=== PATIENT | female | born 1975 | race Caucasian/White ===

== ENCOUNTER 2018-11-06 22:50 | Emergency (ER) | payer OTHER ==
[~2018-11-06] VITALS: Ht 152.4 cm; Wt 54.4 kg
[~2018-11-06 22:50] MED LIST: ANAPROX DS550 MG PO; AUGMENTIN 875 M1 TAB PO; FLEXERIL5 MG PO; MOTRIN800 MG PO; NKHM
[2018-11-06 23:03] VITALS: BP 129/87
[2018-11-06] MEDS ORDERED: ANAPROX DS550 MG PO (23:51)
[2018-11-06] MEDS ORDERED: ROBAXIN500 M1 PO (23:51)
== END 2018-11-07 00:54 | disposition home or self-care (01) ==
LOC: ED 22:50
DX: S16.1XXA Strain of muscle, fascia and tendon at neck level, initial encounter (principal); F17.200 Nicotine dependence, unspecified, uncomplicated; V49.9XXA Car occupant (driver) (passenger) injured in unspecified traffic accident, initial encounter; Y93.89 Activity, other specified; Y92.89 Other specified places as the place of occurrence of the external cause; Y99.8 Other external cause status

== ENCOUNTER 2019-01-28 14:03 | Emergency (ER) | payer OTHER ==
[~2019-01-28] VITALS: Ht 154.9 cm; Wt 58.1 kg
[~2019-01-28 14:03] MED LIST changes: +ROBAXIN500 M1 PO
[2019-01-28 14:55] LABS: BASO # 0.1 10*3/uL (0.0-0.1); BASO % 0.6 % (0.0-1.0); EOS # 0.2 10*3/uL (0.0-0.4); EOS % 1.8 % (1.0-4.0); LYMPH # 1.9 10*3/uL (1.3-4.4); MEAN CELL VOLUME 84.9 fl (81.0-99.0); MEAN CORPUSCULAR HGB 27.7 pg (27.0-31.0); MEAN CORPUSCULAR HGB CONC 32.7 g/dl (33.0-37.0); MEAN PLATELET VOLUME 9.9 fl (9.6-12.3); MONO # 0.7 10*3/uL (0.1-1.0); MONO % 6.3 % (3.0-9.0); NEUT # 7.7 10*3/uL (2.3-7.9); PLATELET COUNT AUTOMATED 319 10*3/uL (130-400); RED BLOOD COUNT 5.77 10*6/uL (4.10-5.10); RED CELL DISTRI WIDTH 13.2 % (0-14.5); WHITE BLOOD COUNT 10.6 10*3/uL (4.8-10.8)
[2019-01-28 15:05] LABS: ALBUMIN 3.7 gm/dl (3.1-4.5); ALKALINE PHOSPHATASE 47 U/L (45-117); BUN 15 mg/dl (7-24); CHLORIDE 111 mmol/L (98-107); CREATININE 0.75 mg/dL (0.55-1.02); POTASSIUM 4.4 mmol/L (3.5-5.1); SGOT/AST 10 IU/L (3-35); SGPT/ALT 20 U/L (12-78); SODIUM 140 mmol/L (136-145); TOTAL PROTEIN 7.7 gm/dL (6.4-8.2)
[2019-01-28 15:42] VITALS: BP 124/88
== END 2019-01-28 17:09 | disposition home or self-care (01) ==
LOC: ED 14:03
PROVIDERS: Nurse Practitioner Family
DX: G37.9 Demyelinating disease of central nervous system, unspecified (principal); Z79.899 Other long term (current) drug therapy; Z90.49 Acquired absence of other specified parts of digestive tract

== ENCOUNTER 2021-06-18 20:09 | Emergency (ER) | payer OTHER ==
[2021-06-18 21:21] VITALS: BP 140/74
[2021-06-18 21:42] LABS: BILIRUBIN Negative (Negative); BLOOD Negative (Negative); CLARITY Clear (Clear); COLOR Yellow (Yellow); GLUCOSE Negative (Negative); KETONE Negative (Negative); LEUKO ESTERASE Negative (Negative); NITRITE Negative (Negative); SPECIFIC GRAVITY 1.025 (1.001-1.030); UROBILINOGEN 0.2 E.U./dl (0.0-1.0)
[2021-06-18 21:51] LABS: BACTERIA TRACE; RBC 0-2 rbc/hpf (0-2)
[2021-06-18] MEDS ORDERED: IBUPROFEN600 MG PO (22:44)
== END 2021-06-18 22:46 | disposition home or self-care (01) ==
LOC: ED 20:09
PROVIDERS: Physician Assistant
DX: M79.675 Pain in left toe(s) (principal); Z20.2 Contact with and (suspected) exposure to infections with a predominantly sexual mode of transmission

== ENCOUNTER 2021-07-20 17:31 | Emergency (ER) | payer OTHER ==
[~2021-07-20] VITALS: Wt 49.9 kg
[~2021-07-20 17:31] MED LIST changes: +IBUPROFEN600 MG PO
[2021-07-20 17:37] VITALS: BP 122/83
== END 2021-07-20 20:34 | disposition left against medical advice (07) ==
LOC: ED 17:31
DX: R21 Rash and other nonspecific skin eruption (principal); Z53.21 Procedure and treatment not carried out due to patient leaving prior to being seen by health care provider

== ENCOUNTER 2021-07-20 21:28 | Emergency (ER) | payer OTHER | END 2021-07-20 21:43 | disposition left against medical advice (07) | LOC: ED 21:28 | DX: R21 Rash and other nonspecific skin eruption (principal); Z53.21 Procedure and treatment not carried out due to patient leaving prior to being seen by health care provider ==

== ENCOUNTER 2021-07-25 14:52 | Observation (INO) | payer OTHER ==
[~2021-07-25] VITALS: Ht 152.4 cm; Wt 49.5 kg
[2021-07-25 15:12] VITALS: BP 111/78
[2021-07-25 16:33] LABS: BASO % 0.4 % (0.0-1.0); EOS # 0.3 10*3/uL (0.0-0.4); EOS % 3.4 % (1.0-4.0); HEMATOCRIT 45.7 % (37.0-47.0); LYMPH # 1.6 10*3/uL (1.3-4.4); LYMPH % 17.2 % (27.0-41.0); MEAN CELL VOLUME 84.2 fl (81.0-99.0); MEAN CORPUSCULAR HGB 27.4 pg (27.0-31.0); MEAN CORPUSCULAR HGB CONC 32.6 g/dl (33.0-37.0); MEAN PLATELET VOLUME 9.7 fl (9.6-12.3); MONO # 0.7 10*3/uL (0.1-1.0); MONO % 6.9 % (3.0-9.0); NEUT # 6.8 10*3/uL (2.3-7.9); NEUT % 71.8 % (47.0-73.0); PLATELET COUNT AUTOMATED 336 10*3/uL (130-400); RED BLOOD COUNT 5.43 10*6/uL (4.10-5.10); RED CELL DISTRI WIDTH 13.5 % (0-14.5); WHITE BLOOD COUNT 9.4 10*3/uL (4.8-10.8)
[2021-07-25 16:48] LABS: ALKALINE PHOSPHATASE 54 U/L (45-117); BUN 14 mg/dl (7-24); CHLORIDE 111 mmol/L (98-107); CREATININE 0.68 mg/dL (0.55-1.02); POTASSIUM 3.8 mmol/L (3.5-5.1); SGOT/AST 12 IU/L (3-35); SGPT/ALT 14 U/L (12-78); SODIUM 141 mmol/L (136-145); TOTAL PROTEIN 7.1 gm/dL (6.4-8.2)
[2021-07-25 17:58] LABS: BILIRUBIN 1+ (Negative); BLOOD 3+ (Negative); CLARITY Turbid (Clear); GLUCOSE Negative (Negative); KETONE Negative (Negative); LEUKO ESTERASE 2+ (Negative); NITRITE Positive (Negative); SPECIFIC GRAVITY >= 1.030 (1.001-1.030); UROBILINOGEN 0.2 E.U./dl (0.0-1.0)
[2021-07-25 18:03] LABS: COLOR Red (Yellow)
[2021-07-25 18:06] LABS: BACTERIA 3+; RBC TNTC rbc/hpf (0-2)
[2021-07-26] VITALS: BP 140/99
[2021-07-26 06:05] LABS: BASO % 0.6 % (0.0-1.0); EOS # 0.4 10*3/uL (0.0-0.4); HEMATOCRIT 43.6 % (37.0-47.0); LYMPH # 1.9 10*3/uL (1.3-4.4); LYMPH % 27.2 % (27.0-41.0); MEAN CELL VOLUME 83.4 fl (81.0-99.0); MEAN CORPUSCULAR HGB 27.7 pg (27.0-31.0); MEAN CORPUSCULAR HGB CONC 33.3 g/dl (33.0-37.0); MEAN PLATELET VOLUME 9.7 fl (9.6-12.3); MONO # 0.6 10*3/uL (0.1-1.0); MONO % 8.5 % (3.0-9.0); NEUT % 57.6 % (47.0-73.0); PLATELET COUNT AUTOMATED 334 10*3/uL (130-400); RED BLOOD COUNT 5.23 10*6/uL (4.10-5.10); RED CELL DISTRI WIDTH 13.5 % (0-14.5)
[2021-07-26 06:24] LABS: CHLORIDE 110 mmol/L (98-107); POTASSIUM 3.2 mmol/L (3.5-5.1); SODIUM 142 mmol/L (136-145)
[2021-07-26 06:43] LABS: ALKALINE PHOSPHATASE 50 U/L (45-117); BUN 12 mg/dl (7-24); CHOLESTEROL 176 mg/dL (<200); LDL CHOLESTEROL 94 mg/dL (9-159); SGOT/AST 9 IU/L (3-35); SGPT/ALT 13 U/L (12-78); TOTAL PROTEIN 6.4 gm/dL (6.4-8.2); TRIGLYCERIDES 112 mg/dl (<150)
[2021-07-26 07:12] LABS: VITAMIN D, 25-HYDROXY 29.5 ng/mL (30-100)
[2021-07-26 08:00] VITALS: BP 110/76
[2021-07-26 12:00] VITALS: BP 120/82
[2021-07-26 14:26] LABS: CSF TOTAL PROTEIN 38.8 mg/dL (15-45)
[2021-07-26 16:00] VITALS: BP 114/68
[2021-07-26 20:00] VITALS: BP 122/69
[2021-07-27] VITALS: BP 125/75
[2021-07-27 06:28] LABS: BUN 14 mg/dl (7-24); CHLORIDE 113 mmol/L (98-107); CREATININE 0.64 mg/dL (0.55-1.02); POTASSIUM 4.1 mmol/L (3.5-5.1); SODIUM 143 mmol/L (136-145)
[2021-07-27 08:00] VITALS: BP 118/94
[2021-07-27 12:00] VITALS: BP 122/86
[2021-07-27] MEDS ORDERED: ZOFRAN4 MG PO (12:35)
[2021-07-27] MEDS ORDERED: ASPIRIN ADULT L81 M2 PO (12:35)
== END 2021-07-27 14:50 | disposition home or self-care (01) ==
LOC: ED 14:52 → 4E 21:22 → EDHOLD 21:22 → 4E 21:43
PROVIDERS: Hospitalist; Physician Assistant; Student in an Organized Health Care Education/Training Program; ADMIT Internal Medicine; ATTEND Internal Medicine
DX: R51.9 Headache, unspecified (principal); I63.9 Cerebral infarction, unspecified; I10 Essential (primary) hypertension; N30.00 Acute cystitis without hematuria; E87.8 Other disorders of electrolyte and fluid balance, not elsewhere classified; E83.41 Hypermagnesemia; J45.909 Unspecified asthma, uncomplicated; E07.9 Disorder of thyroid, unspecified; F32.9 Major depressive disorder, single episode, unspecified; N80.9 Endometriosis, unspecified; G35 Multiple sclerosis; Z79.899 Other long term (current) drug therapy

== ENCOUNTER 2021-07-29 12:57 | Emergency (ER) | payer OTHER ==
[~2021-07-29] VITALS: Wt 45.4 kg
[~2021-07-29 12:57] MED LIST changes: +ASPIRIN ADULT L81 M2 PO; +ZOFRAN4 MG PO
[2021-07-29 12:59] VITALS: BP 130/68
[2021-07-29 13:19] LABS: BASO # 0.1 10*3/uL (0.0-0.1); BASO % 0.5 % (0.0-1.0); EOS # 0.4 10*3/uL (0.0-0.4); EOS % 3.5 % (1.0-4.0); HEMATOCRIT 44.7 % (37.0-47.0); LYMPH # 1.5 10*3/uL (1.3-4.4); LYMPH % 14.8 % (27.0-41.0); MEAN CELL VOLUME 83.9 fl (81.0-99.0); MEAN CORPUSCULAR HGB 27.8 pg (27.0-31.0); MEAN CORPUSCULAR HGB CONC 33.1 g/dl (33.0-37.0); MEAN PLATELET VOLUME 9.8 fl (9.6-12.3); MONO # 0.6 10*3/uL (0.1-1.0); MONO % 5.4 % (3.0-9.0); NEUT # 7.7 10*3/uL (2.3-7.9); NEUT % 75.6 % (47.0-73.0); PLATELET COUNT AUTOMATED 314 10*3/uL (130-400); RED BLOOD COUNT 5.33 10*6/uL (4.10-5.10); RED CELL DISTRI WIDTH 13.6 % (0-14.5); WHITE BLOOD COUNT 10.2 10*3/uL (4.8-10.8)
[2021-07-29 13:40] LABS: BUN 17 mg/dl (7-24); CHLORIDE 111 mmol/L (98-107); CREATININE 0.76 mg/dL (0.55-1.02); POTASSIUM 3.9 mmol/L (3.5-5.1); SODIUM 142 mmol/L (136-145)
[2021-07-29 14:45] LABS: BILIRUBIN Negative (Negative); BLOOD 1+ (Negative); CLARITY Clear (Clear); COLOR Yellow (Yellow); GLUCOSE Negative (Negative); KETONE Negative (Negative); LEUKO ESTERASE Negative (Negative); NITRITE Negative (Negative); PH 6.5 (4.5-8.0)
[2021-07-29 14:53] LABS: URINE AMPHETAMINES < 1000 (1000ng/ml); URINE BARBITURATES < 200 (200ng/ml); URINE BENZODIAZEPINES < 200 (200ng/ml); URINE CANNABINOIDS (THC) < 50 (50ng/ml); URINE COCAINE < 300 (300ng/ml); URINE METHADONE < 300 (300ng/ml); URINE OPIATES < 300 (300ng/ml)
[2021-07-29 14:55] LABS: URINE PHENCYCLIDINE < 25 (25ng/ml)
[2021-07-29 14:58] LABS: BACTERIA 1+; EPITHELIAL CELLS TNTC; MUCOUS TRACE
== END 2021-07-29 19:32 | disposition home or self-care (01) ==
LOC: ED 12:57
PROVIDERS: Emergency Medicine
DX: G44.89 Other headache syndrome (principal); I10 Essential (primary) hypertension; J45.909 Unspecified asthma, uncomplicated; Z88.0 Allergy status to penicillin; Z90.49 Acquired absence of other specified parts of digestive tract; Z90.89 Acquired absence of other organs; Z98.890 Other specified postprocedural states

== ENCOUNTER 2021-11-04 17:47 | Emergency (ER) | payer OTHER ==
[~2021-11-04] VITALS: Ht 152.4 cm; Wt 51.7 kg
[2021-11-04 18:02] VITALS: BP 134/90
[2021-11-04 19:49] LABS: BILIRUBIN Negative (Negative); BLOOD Negative (Negative); CLARITY Cloudy (Clear); COLOR Yellow (Yellow); GLUCOSE Negative (Negative); KETONE Negative (Negative); LEUKO ESTERASE Trace (Negative); NITRITE Positive (Negative); PH 7.5 (4.5-8.0); SPECIFIC GRAVITY 1.025 (1.001-1.030)
[2021-11-04 20:16] LABS: BACTERIA 4+
[2021-11-04 20:17] LABS: EPITHELIAL CELLS 0-2
[2021-11-04] MEDS ORDERED: MACROBID100 M1 PO (21:11)
== END 2021-11-04 21:26 | disposition home or self-care (01) ==
LOC: ED 17:47
PROVIDERS: Physician Assistant
DX: S20.211A Contusion of right front wall of thorax, initial encounter (principal); N39.0 Urinary tract infection, site not specified; Z88.0 Allergy status to penicillin; Z79.82 Long term (current) use of aspirin; Z79.899 Other long term (current) drug therapy; Z90.49 Acquired absence of other specified parts of digestive tract; Z98.890 Other specified postprocedural states; W50.0XXA Accidental hit or strike by another person, initial encounter; Y93.71 Activity, boxing; Y92.89 Other specified places as the place of occurrence of the external cause; Y99.8 Other external cause status

== ENCOUNTER 2021-11-29 22:49 | Emergency (ER) | payer OTHER ==
[~2021-11-29] VITALS: Ht 152.4 cm; Wt 51.7 kg
[~2021-11-29 22:49] MED LIST changes: +MACROBID100 M1 PO
[2021-11-30 00:21] LABS: BILIRUBIN Negative (Negative); BLOOD Negative (Negative); CLARITY Clear (Clear); COLOR Yellow (Yellow); GLUCOSE Negative (Negative); KETONE Negative (Negative); LEUKO ESTERASE Negative (Negative); NITRITE Negative (Negative); PH 6.5 (4.5-8.0); SPECIFIC GRAVITY 1.025 (1.001-1.030)
[2021-11-30 00:27] LABS: WBC 0-2 wbc/hpf (0-5)
[2021-11-30] MEDS ORDERED: LICE TREATMENT T (00:51)
== END 2021-11-30 01:30 | disposition home or self-care (01) ==
LOC: ED 22:49
PROVIDERS: Emergency Medicine
DX: B85.2 Pediculosis, unspecified (principal); J45.909 Unspecified asthma, uncomplicated; F32.A Depression, unspecified; E07.9 Disorder of thyroid, unspecified; I10 Essential (primary) hypertension; Z79.82 Long term (current) use of aspirin; Z88.0 Allergy status to penicillin; Z86.73 Personal history of transient ischemic attack (TIA), and cerebral infarction without residual deficits; Z90.49 Acquired absence of other specified parts of digestive tract; Z98.890 Other specified postprocedural states; Z76.0 Encounter for issue of repeat prescription

== ENCOUNTER 2021-12-10 20:36 | Emergency (ER) | payer OTHER ==
[~2021-12-10 20:36] MED LIST changes: +LICE TREATMENT T
[2021-12-10 20:38] VITALS: BP 140/78
[2021-12-10 21:24] LABS: BILIRUBIN Negative (Negative); BLOOD 3+ (Negative); CLARITY Clear (Clear); COLOR Yellow (Yellow); GLUCOSE Negative (Negative); KETONE Negative (Negative); LEUKO ESTERASE Negative (Negative); NITRITE Positive (Negative); SPECIFIC GRAVITY 1.025 (1.001-1.030)
[2021-12-10 21:37] LABS: BACTERIA 4+; EPITHELIAL CELLS 0-2; RBC TNTC rbc/hpf (0-2)
[2021-12-10] MEDS ORDERED: MACROBID100 M1 PO (22:02)
== END 2021-12-10 23:42 | disposition home or self-care (01) ==
LOC: ED 20:36
PROVIDERS: Emergency Medicine
DX: S62.634A Displaced fracture of distal phalanx of right ring finger, initial encounter for closed fracture (principal); N39.0 Urinary tract infection, site not specified; I10 Essential (primary) hypertension; J45.909 Unspecified asthma, uncomplicated; Z88.0 Allergy status to penicillin; Z90.89 Acquired absence of other organs; Z90.49 Acquired absence of other specified parts of digestive tract; X58.XXXA Exposure to other specified factors, initial encounter; Y93.89 Activity, other specified; Y92.89 Other specified places as the place of occurrence of the external cause; Y99.8 Other external cause status